=== PATIENT | female | born 1945 | race Caucasian/White ===

== ENCOUNTER 2016-10-04 09:25 | Emergency (ER) | payer MEDICARE, OTHER ==
--- NOTE | 2016-10-04 10:07 | ED Physician Documentation ---
General Adult - HISTORIAN Historian: patient - HPI Stated Complaint: "Cold Sore" to Lips Chief Complaint: General Adult Further Comments: yes (70 year old female patient sent over from clinic for evaluation of lip edema. Patient states she woke up with lower lip edema and blisters. Patient states she used abreva on her cold sores yesterday and they have become worse. Patient denies cold, fever or herpes.) - ROS CONST: no problems EYES/ENT: none CVS/RESP: none GI/: none MS/SKIN/LYMPH: none NEURO/PSYCH: denies: headache, fainting, dizziness, tingling, numbness, difficulty walking, difficulty with speech, anxiety, depression, other - PAST HX Past History: none Other History: other (osteoporosis) Immunizations: UTD Allergies/Adverse Reactions: Allergies Allergy/AdvReac Type Severity Reaction Status Date / Time No Known Allergies Allergy Unverified 10/04/16 09:42 Home Medications: Ambulatory Orders Medication Instructions Recorded "For Bones" 10/04/16 Acyclovir [Zovirax] 400 mg PO 5XDAY #25 tablet 10/04/16 - SOCIAL HX Smoking History: non-smoker - FAMILY HX Family History: No - VITAL SIGNS Vital Signs: Vital Signs Temp Pulse Resp BP Pulse Ox 97 F L 88 18 214/81 99 10/04/16 09:25 10/04/16 09:25 10/04/16 09:25 10/04/16 09:25 10/04/16 09:25 - REVIEWED ASSESSMENTS Nursing Assessment Reviewed: Yes Vitals Reviewed: Yes Progress - Progress Progress: Reviewed discharge plan and answered questions. Patient unhappy she was sent to ER. Explained staff was concerned she was having an allergic reaction. Reassured patient she was not allergic to abreva. Explained she had multiple canker sores causing the pain and edema. General Adult Physical Exam - PHYSICAL EXAM GENERAL APPEARANCE: mild distress EENT: eye inspection normal, ENT inspection normal, pharynx normal, no signs of dehydration, JULIO, no nystagmus, TM's nml, other (lower lip with multiple herpes simplex 1 blisters, moderate amount of edema. 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 Home Medications: Ambulatory Orders "For Bones" 10/04/16 Acyclovir [Zovirax] 400 mg PO 5XDAY #25 tablet 10/04/16 Condition: Stable Disposition: 01 HOME, SELF-CARE Decision to Admit: NO Decision Time: 10:06
[2016-10-04 10:16] VITALS: BP 170/68
== END 2016-10-04 10:15 | disposition home or self-care (01) ==
LOC: ED 09:25
DX: B00.1 Herpesviral vesicular dermatitis (principal)
CPT/HCPCS: 99282; 99283